=== PATIENT | male | born 1985 | race African-American/Black ===

== ENCOUNTER 2018-09-07 18:06 | Emergency (ER) | payer OTHER ==
[~2018-09-07] VITALS: Wt 89.0 kg
[2018-09-07 18:10] VITALS: Wt 89.0 kg
[2018-09-07] MEDS ORDERED: DIPHENHYDRAMINE 50 MG INJ IV STA (18:30)
[2018-09-07] MEDS ORDERED: FAMOTIDINE 20 MG INJ IV STA (18:30)
[2018-09-07] MEDS ORDERED: METHYLPREDNISOLONE 125 MG INJ IV STA (18:30)
[2018-09-07] MEDS ORDERED: EPINEPHrine 1 MG INJ IM STA (18:30)
[2018-09-07] MEDS ORDERED: DIPHENHYDRAMINE 50 MG INJ ONE (18:31)
[2018-09-07] MEDS ORDERED: EPINEPHrine 0.1 MG/ML SYG ONE (18:31)
[2018-09-07] MEDS ORDERED: IPRATROPIUM (NEB) 0.5 MG/2.5 ML AMP NEB STA (18:49)
[2018-09-07] MEDS ORDERED: ALBUTEROL 0.083% (NEB) 2.5 MG/3 ML AMP NEB STA (18:49)
--- NOTE | 2018-09-07 19:51 | ERD ---
ER Documentation Chief Complaint Chief Complaint bee sting, has allergic reaction, rash HPI 32-year-old male with a history of asthma as a child presenting with complaints of a skin rash with pruritus as well as difficulty breathing after he was stung by bee today. Patient does have a remote allergy to bee sting which was localized only. No history of anaphylactic reaction to any allergen. He denies any vomiting or diarrhea. He does complain of chest tightness. All of his symptoms started after the bee sting. He has no other associated complaints. ROS All systems reviewed and are negative except as per history of present illness. Medications Home Meds Active Scripts Diphenhydramine Hcl* (Benadryl*) 25 Mg Cap, 25 MG PO Q6 PRN for ITCHING/RASH, #30 TAB Prov:PALLAVI FARRIS MD 09/07/18 Prednisone* (Prednisone*) 20 Mg Tab, 60 MG PO DAILY for 5 Days, TAB Prov:PALLAVI FARRIS MD 09/07/18 Epinephrine (Epipen 2-Greg) 0.3 Mg/0.3 Ml Pen.injctr, 1 EA INJ ONCE PRN for ALLERGIC REACTION, #1 EA Prov:PALLAVI FARRIS MD 09/07/18 Allergies Allergies: Coded Allergies: No Known Allergy (Unverified , 09/14/11) PMhx/Soc Medical and Surgical Hx: pt denies Medical Hx, pt denies Surgical Hx History of Surgery: No Anesthesia Reaction: No Hx Neurological Disorder: No Hx Respiratory Disorders: Yes (asthma) Hx Cardiac Disorders: Yes (pericarditis) Hx Psychiatric Problems: No Hx Miscellaneous Medical Probl: No Hx Alcohol Use: Yes (every other day ) Hx Substance Use: No Hx Tobacco Use: Yes Smoking Status: Former smoker FmHx Family History: No diabetes Physical Exam Vitals Vital Signs Date Temp Pulse Resp B/P (MAP) Pulse Ox O2 O2 Flow FiO2 Time Delivery Rate 09/07/18 82 16 123/89 100 Room Air 20:54 (100) 09/07/18 Nasal 4 20:11 Cannula 09/07/18 95 3.0 19:01 09/07/18 103 20 95 Nasal 3.0 19:00 Cannula 09/07/18 Nasal 4.0 18:48 Cannula 09/07/18 110 24 141/91 98 Nasal 4.0 18:48 (108) Cannula 09/07/18 98.1 121 18 133/83 99 18:10 (100) Physical Exam Const: Appears to be in mild discomfort, no significant respiratory distress, no diaphoresis Head: Atraumatic Eyes: Normal Conjunctiva ENT: Normal External Ears, Nose and Mouth. Small hives on face. No tongue or lip swelling. No posterior oropharyngeal swelling. No stridor. No drooling. Normal phonation Neck: Full range of motion. No meningismus. No swelling Resp: Mild inspiratory and expiratory wheezing with good air movement bilaterally Cardio: Tachycardic with regular, no murmurs. 2+ distal pulses Abd: Soft, non tender, non distended. Normal bowel sounds Skin: Small urticaria widespread over face, trunk, extremities Back: No midline or flank tenderness Ext: No cyanosis, or edema Neur: Awake and alert, mentating normally, normal speech, moving all extremities, no facial asymmetry Psych: Normal Mood and Affect Result Diagram: 09/07/18194609/07/181946 Results 24 hrs Laboratory Tests Test 09/07/18 19:47 White Blood Count 10.0 10^3/ul Red Blood Count 5.07 10^6/ul Hemoglobin 15.3 g/dl Hematocrit 45.8 % Mean Corpuscular Volume 90.3 fl Mean Corpuscular Hemoglobin 30.2 pg Mean Corpuscular Hemoglobin Concent 33.4 g/dl Red Cell Distribution Width 12.8 % Platelet Count 309 10^3/UL Mean Platelet Volume 10.4 fl Immature Granulocytes % 0.800 % Neutrophils % 53.1 % Lymphocytes % 39.0 % Monocytes % 6.3 % Eosinophils % 0.4 % Basophils % 0.4 % Nucleated Red Blood Cells % 0.0 /100WBC Immature Granulocytes # 0.080 10^3/ul Neutrophils # 5.3 10^3/ul Lymphocytes # 3.9 10^3/ul Monocytes # 0.6 10^3/ul Eosinophils # 0.0 10^3/ul Basophils # 0.0 10^3/ul Nucleated Red Blood Cells # 0.0 10^3/ul Sodium Level 139 mmol/L Potassium Level 4.2 mmol/L Chloride Level 105 mmol/L Carbon Dioxide Level 24 mmol/L Anion Gap 10 Blood Urea Nitrogen 18 mg/dl Creatinine 0.97 mg/dl Est Glomerular Filtrat Rate mL/min > 60 mL/min Glucose Level 137 mg/dl Calcium Level 8.8 mg/dl Troponin I 0.013 ng/ml Current Medications Medications Dose Sig/Clarice Start Time Status Last (Trade) Ordered Route PRN Stop Time Admin Dose Reason Admin 50 mg ONCE STAT 09/07/18 DC 09/07/18 Diphenhydrami IV 18:30 18:40 ne HCl 09/07/18 18:31 (Benadryl) Epinephrine 0.3 mg ONCE STAT 09/07/18 DC 09/07/18 IM 18:30 18:40 (EPINEPHrine) 09/07/18 18:31 Famotidine 20 mg ONCE STAT 09/07/18 DC 09/07/18 (Pepcid Iv) IV 18:30 18:40 09/07/18 18:31 125 mg ONCE STAT 09/07/18 DC 09/07/18 Methylprednis IV 18:30 18:40 olone Sodium 09/07/18 18:31 Succinate (Solu-Medrol) Albuterol 5 mg ONCE STAT 09/07/18 DC 09/07/18 (Proventil NEB 18:49 19:00 0.083% (Neb)) 09/07/18 18:50 Ipratropium 0.5 mg ONCE STAT 09/07/18 DC 09/07/18 [place] NEB 18:49 19:00 (Atrovent 09/07/18 18:50 0.02% (Neb)) 1 tab ONCE ONCE 09/07/18 DC Nitroglycerin SL 20:00 09/07/18 20:01 (Nitroglyceri n (Sl Tab) 0.4 Mg) 50 mg STK-MED 09/07/18 DC Diphenhydrami ONCE .ROUTE 18:31 ne HCl 09/08/18 10:29 (Benadryl) Epinephrine 1 mg STK-MED 09/07/18 DC ONCE .ROUTE 18:31 09/08/18 10:30 Procedures/MDM EMERGENT LABS AND DIAGNOSTIC STUDIES: Lab Results above were reviewed and interpreted by me. CBC: no anemia or evidence of infection BMP: no e/o clinically significant electrolyte abnormality severe acidosis, alkalosis, renal failure, diabetic ketoacidosis Troponin within normal limits, not indicative of cardiac ischemia 12-lead EKG #1 was interpreted by Seth Farris MD: Normal Sinus Rhythm with ventricular rate of 99 beats per minute Rightward axis T wave inversions in the inferior leads Concerning for ischemia, no STEMI EKG #2: Rate/Rhythm: Normal Sinus Rhythm QRS, ST, T-waves: No changes consistent w/ acute ischemia Impression: No evidence of ischemia or arrhythmia Radiology Results as interpreted by Radiology below were reviewed by Kishor Farris MD: Chest x-ray shows no acute abnormalities Initial Nursing notes reviewed. Previous Medical Records requested via the Electronic Health Record. EMERGENCY DEPARTMENT COURSE / MEDICAL DECISION MAKING: Patient presented with signs and symptoms consistent with anaphylactic reaction to a bee sting. He did have wheezing on exam but had no evidence of impending respiratory failure and did not require an airway. He was immediately treated with epinephrine, Benadryl, Pepcid, and steroids IV. He had good response to the epinephrine but continued to have wheezing on exam. Given his history of asthma, I recommended starting an albuterol and Atrovent treatment. Initially the patient had chest pain which was likely secondary to his bronchospasm. However since the chest pain did not resolve with treatment, an EKG was done showing evidence of possible ischemia. However within minutes after the EKG, the patient's symptoms spontaneously resolved. A repeat EKG was done which showed no continued significant abnormalities and was completely normal. I suspect the patient was likely suffering from coronary vasospasm secondary to his allergic reaction, likely worsened by the epinephrine. Labs were done and did not show any significant abnormalities. Upon reevaluation, the patient felt significantly better and did not have any continued symptoms. I explained to the patient his findings and recommended admission for observation for telemetry monitoring and continued observation to ensure his allergic reaction does not get worse. However the patient would much rather go home with medications and return if he is worsening. The patient has made the decision to leave this Emergency Department and any ongoing care against the advice of the emergency physician. The patient has been informed of and verbalized understanding of the inherent risks of this decision, including , disability. The patient explained to me the reason for wanting to sign out against medical advice which was he felt much better and wanted to go home.. The patient was given alternative therapeutic options including discharge home with prescriptions for allergic reaction including EpiPen and return for any worsening symptoms. The patient has the capacity to make this decision and accepts the responsibility of leaving at this time. The patient and all necessary parties have been advised that the patient may return at any time for further evaluation or treatment. The patient's condition at time of discharge is stable. Critical Care Time: 45 minutes Treatments/Evaluations: Close monitoring and treatment of unstable vital signs, cardiorespiratory, and neurologic status, while maintaining tight balance of fluid, respiratory, and cardiac interventions. This time includes discussing the case with the patient and the patients family. This time does not include all procedures stated elsewhere in this record. This time also includes reviewing o ld records, labs and radiological studies. This time includes examining and re- examining the patient. Additionally, this time also includes arranging care with admitting and consulting physicians. Departure Diagnosis: Primary Impression: Anaphylactic reaction to bee sting Encounter type: initial encounter Injury intent: accidental or unintentional Qualified Codes: T63.441A - Toxic effect of venom of bees, accidental (unintentional), initial encounter Additional Impression: Coronary vasospasm Condition: Fair PALLAVI FARRIS MD September 07, 2018 19:51
[2018-09-07] MEDS ORDERED: NITROGLYCERIN (SL) 0.4 MG TAB SL ONE (20:00)
[2018-09-07] MEDS ORDERED: EPIN0.3P4 INJ (20:20)
[2018-09-07] MEDS ORDERED: PRED20TA PO (20:20)
[2018-09-07] MEDS ORDERED: BEN25 PO (20:20)
[2018-09-07 20:54] VITALS: BP 123/89; PULSE 82; RESP 16
== END 2018-09-07 20:55 | disposition left against medical advice (07) ==
LOC: E/R 18:06
DX: T63.441A Toxic effect of venom of bees, accidental (unintentional), initial encounter (principal); I20.1 Angina pectoris with documented spasm; R06.2 Wheezing; Z87.891 Personal history of nicotine dependence
CPT/HCPCS: 36415; 71045; 80048; 84484; 85025; 93005; 94664; 96372; 96374; 96375; 99285; J0171; J1200; J2930